=== PATIENT | female | born 1980 | race Two or more races ===

== ENCOUNTER 2021-02-06 20:39 | Emergency (ER) | payer SELFPAY ==
[~2021-02-06] VITALS: Ht 162.6 cm; Wt 68.3 kg
[2021-02-06] MEDS ORDERED: MECLIZINE CHEWABLE 25 MG TAB ONE (22:12)
[2021-02-06] MEDS ORDERED: DEXAMETHASONE 4 MG/ML, 1ML ONE (22:12)
[2021-02-06 22:30] LABS: BASOPHILS % (AUTO) 1 % (0-1); EOSINOPHILS % (AUTO) 1 % (1-7); LYMPHOCYTES % (AUTO) 28 % (22-44); MEAN CORPUSCULAR HEMOGLOBIN 30.4 pg (27.0-34.8); MEAN CORPUSCULAR HGB CONC 33.9 g/dL (32.4-35.8); MEAN PLATELET VOLUME 8.2 fL (7.4-10.4); MONOCYTES % (AUTO) 8 % (2-9); NEUTROPHILS % (AUTO) 64 % (42-75); PLATELET COUNT 235 x10^3/uL (130-400); RED BLOOD COUNT 4.76 x10^6/uL (3.82-5.3); RED CELL DISTRIBUTION WIDTH 13.1 % (9.6-15.2)
[2021-02-06] MEDS ORDERED: DEXAMETHASONE 4 MG/ML, 1ML IVPush ONE (22:30)
[2021-02-06] MEDS ORDERED: SODIUM CHLORIDE 0.9% 1,000ML IVBOLUS ONE (22:30)
[2021-02-06] MEDS ORDERED: MECLIZINE CHEWABLE 25 MG TAB PO ONE (22:30)
[2021-02-06] MEDS ORDERED: SODIUM CHLORIDE FLUSH 10ML SYR IVF ONE (22:30)
[2021-02-06 22:31] LABS: MD NO
[2021-02-06 22:42] LABS: ALBUMIN 3.8 g/dL (3.4-5.0); ANION GAP 4 mmol/L (5-15); CALCIUM 8.9 mg/dL (8.5-10.1); CHLORIDE 106 mmol/L (98-107); CREATININE 0.67 mg/dL (0.55-1.02)
[2021-02-06 22:45] LABS: TROPONIN I < 0.015 ng/mL (0.000-0.045)
[2021-02-06] MEDS ORDERED: LORATADINE 10 MG TABLET PO ONE (23:00)
[2021-02-07 00:04] VITALS: BP 134/78
[2021-02-07] MEDS ORDERED: LORATADINE 10 MG TABLET PO SCH (09:00)
== END 2021-02-07 00:06 | disposition home or self-care (01) ==
LOC: ED 21:44
DX: J30.9 Allergic rhinitis, unspecified (principal); R42 Dizziness and giddiness; R51.9 Headache, unspecified; R94.31 Abnormal electrocardiogram [ECG] [EKG]
CPT/HCPCS: 36415; 80048; 82040; 84484; 84703; 85025; 93005; 96361; 96374; 99284; J1100; J7030